=== PATIENT | female | born 1935 | race Caucasian/White ===

== ENCOUNTER 2017-10-01 09:55 | Emergency (ER) | payer MEDICARE, BC ==
[2017-10-01 11:58] VITALS: BP 151/73
--- NOTE | 2017-10-01 11:58 | UC ---
Complaint Female HPI - HPI Summary HPI Summary: Pt presents with vaginal burning and itching. She tells me that she was diagnosed with a UTI about a week ago and finished a course of Macrobid. At that time she developed vaginal burning and itching. Her PCP advised her to try monistat - which she did with no relief. She was then seen by an [employer] at [place] and diagnosed with a yeast infection. She was given a one time dose of Diflucan which did improve her symptoms for one day, but they did not completely resolve. The [employer] told her to be seen again if her symptoms did not resolve, but noone is available at [place] until monday. She is here today with continued burning and itching and thick white discharge. Denies fever, chills, dysuria, or flank pain. - History Of Current Complaint Chief Complaint: UCGU Stated Complaint: YEAST INFECTION Time Seen by Provider: 10/01/17 11:58 Hx Obtained From: Patient Onset/Duration: Gradual Onset Timing: Constant Severity Initially: Moderate Severity Currently: Moderate Pain Intensity: 7 Pain Scale Used: 0-10 Numeric - Allergies/Home Medications Allergies/Adverse Reactions: Allergies Allergy/AdvReac Type Severity Reaction Status Date / Time meperidine Allergy Nausea And Verified 10/01/17 10:21 Vomiting Penicillins Allergy Hives Verified 10/01/17 10:21 Sulfa (Sulfonamide Allergy Hives Verified 10/01/17 10:21 Antibiotics) Home Medications: Home Medications Vitamin B Complex [Super B-50 Complex] 1 each PO 10/01/17 [History] PMH/Surg Hx/FS Hx/Imm Hx Previously Healthy: Yes - Surgical History Surgical History: Yes Surgery Procedure, Year, and Place: Tonsilectomy. Appendectomy. Partial hysterectomy. shoulder. knee meniscus repair - Family History Known Family History: Positive: Unknown - Social History Occupation: Retired Lives: [facility] Alcohol Use: Daily Alcohol Amount: glass of wine Substance Use Type: None Smoking Status (MU): Never Smoked Tobacco Have You Smoked in the Last Year: No Review of Systems Constitutional: Negative Skin: Negative Respiratory: Negative Cardiovascular: Negative Gastrointestinal: Negative Genitourinary: Negative, Vaginal/Penile Burning, Vaginal/Penile Itching Neurological: Negative Psychological: Negative All Other Systems Reviewed And Are Negative: Yes Physical Exam Triage Information Reviewed: Yes Appearance: Well-Appearing, No Pain Distress, Well-Nourished Vital Signs: Initial Vital Signs Temp 98.7 F 10/01/17 10:14 Pulse 95 10/01/17 10:14 Resp 18 10/01/17 10:14 BP 140/68 10/01/17 10:14 Pulse Ox 99 10/01/17 10:14 Vital Signs Reviewed: Yes Neck: Positive: Supple, Nontender, No Lymphadenopathy Respiratory: Positive: Lungs clear, Normal breath sounds, No respiratory distress, No accessory muscle use Cardiovascular: Positive: RRR, No Murmur, Pulses Normal Abdomen Description: Positive: Nontender, No Organomegaly, Soft. Negative: CVA Tenderness (R), CVA Tenderness (L), Distended, Guarding Bowel Sounds: Positive: Present Neurological: Positive: Alert Psychological: Positive: Age Appropriate Behavior Skin: Negative: rashes - Additional Comments Pelvic exam: External genitalia: Mildly TTP. Mildly erythematous. No lesions. Vagina: Rugated, copious white thick clumps. No odor Complaint Female Dx - Course Course Of Treatment: Suspect vaginal yeast - culture taken. Will rx for Diflucan for 5 days and have her f/u with Thor [employer] if no relief. - Differential Dx/Diagnosis Provider Diagnoses: Vaginal yeast Discharge - Discharge Plan Condition: Stable Disposition: HOME Prescriptions: Fluconazole [Diflucan 150 MG (NF)] 150 mg PO DAILY #5 tab Patient Education Materials: Yeast Infection (ED) Referrals: Belinda, [Primary Care Provider] - Additional Instructions: If you develop a fever, shortness of breath, chest pain, new or worsening symptoms - please call your PCP or go to the ED. Your blood pressure was high at todays visit. Please see your primary provider within 4 weeks for recheck and re-evaluation.
--- NOTE | 2017-10-02 18:05 | ED ---
Progress - Progress Note Progress Note: Neg magalie, neg garnerella no change Adolfo 10/02/2017 Course/Dx - Course Course Of Treatment: Suspect vaginal yeast - culture taken. Will rx for Diflucan for 5 days and have her f/u with Thor LEMA if no relief.
== END 2017-10-01 12:25 | disposition home or self-care (01) ==
LOC: UCEAST 09:55
DX: B37.3 Candidiasis of vulva and vagina (principal); Z87.440 Personal history of urinary (tract) infections; Z88.5 Allergy status to narcotic agent; Z88.0 Allergy status to penicillin; Z88.2 Allergy status to sulfonamides
CPT/HCPCS: 87480; 87510; 99212; G0463

== ENCOUNTER 2018-05-13 07:08 | Emergency (ER) | payer MEDICARE, BC ==
--- NOTE | 2018-05-13 07:43 | UC ---
Respiratory Complaint HPI - HPI Summary HPI Summary: 3 DAYS OF PRODUCTIVE COUGH, CHEST CONGESTION AND FATIGUE. FEELS WORSE TODAY. DIZZY THIS MORNING. SLIGHTLY NAUSEATED. HAD SEEN PCP 2 DAYS AGO AND TOLD LIKELY VIRAL AND TO F/U IN SEVERAL DAYS IF NOT BETTER. NO FEVER, ST OR EAR PAIN. - History of Current Complaint Chief Complaint: UCGeneralIllness Stated Complaint: CONGESTED Time Seen by Provider: 05/13/18 07:27 Hx Obtained From: Patient Onset/Duration: Gradual Onset, Lasting Days, Still Present Timing: Constant Severity Initially: Moderate Severity Currently: Moderate Pain Intensity: 0 Pain Scale Used: 0-10 Numeric Character: Cough: Productive Aggravating Factors: Nothing Alleviating Factors: Nothing Associated Signs And Symptoms: Positive: URI, Nasal Congestion. Negative: Dyspnea, Fever, Wheezing - Allergies/Home Medications Allergies/Adverse Reactions: Allergies Allergy/AdvReac Type Severity Reaction Status Date / Time meperidine Allergy Nausea And Verified 05/13/18 07:14 Vomiting Penicillins Allergy Hives Verified 05/13/18 07:14 Sulfa (Sulfonamide Allergy Hives Verified 05/13/18 07:14 Antibiotics) Home Medications: Home Medications Ibuprofen TAB* [Motrin TAB* 600 MG] 600 mg PO Q6H PRN 05/13/18 [History Confirmed 05/13/18] guaiFENesin LIQ* [Robitussin*] 5 mg PO Q4H PRN 05/13/18 [History Confirmed 05/13] PMH/Surg Hx/FS Hx/Imm Hx Previously Healthy: Yes - Surgical History Surgical History: Yes Surgery Procedure, Year, and Place: Tonsilectomy. Appendectomy. Partial hysterectomy. shoulder. knee meniscus repair - Family History Known Family History: Negative: Hypertension - Social History Alcohol Use: Daily Alcohol Amount: 1-2 glass of wine Substance Use Type: None Smoking Status (MU): Never Smoked Tobacco Have You Smoked in the Last Year: No Review of Systems Constitutional: Fatigue ENT: Nasal Discharge Respiratory: Cough Cardiovascular: Negative Gastrointestinal: Nausea All Other Systems Reviewed And Are Negative: Yes Physical Exam Triage Information Reviewed: Yes Appearance: No Pain Distress, Well-Nourished, Ill-Appearing - MILDLY Vital Signs: Initial Vital Signs Temp 98.7 F 05/13/18 07:17 Pulse 74 05/13/18 07:17 Resp 18 10/07/18 07:17 BP 184/94 05/13/18 07:17 Pulse Ox 99 05/13/18 07:17 Vital Signs Reviewed: Yes Eyes: Positive: Conjunctiva Clear ENT: Positive: Hearing grossly normal, Pharynx normal, Nasal congestion, TMs normal Neck: Positive: Supple, Nontender, No Lymphadenopathy Respiratory Exam: Normal Cardiovascular Exam: Normal Abdomen Description: Positive: Soft Musculoskeletal: Positive: No Edema Neurological: Positive: Alert Psychological: Positive: Normal Response To Family, Age Appropriate Behavior Skin: Negative: rashes UC Diagnostic Evaluation - Laboratory O2 Sat by Pulse Oximetry: 99 Respiratory Course/Dx - Differential Dx/Diagnosis Provider Diagnoses: 1. ACUTE BRONCHITIS. 2. ELEVATED BP Discharge - Sign-Out/Discharge Documenting (check all that apply): Patient Departure All imaging exams completed and their final reports reviewed: No Studies - Discharge Plan Condition: Stable Disposition: TRANS HIGHER LVL OF CARE FAC Prescriptions: Azithromycin 500 mg PO DAILY #5 tab Patient Education Materials: Acute Bronchitis (ED) Referrals: Daniel Samson MD [Medical Doctor] - 2 Days Additional Instructions: YOUR SYMPTOMS ARE LIKELY VIRALLY MEDIATED AND SHOULD RESOLVE ON THEIR OWN WITH TIME. WILL SEND ERX FOR ANTIBIOTICS AND IF NOT FEELING BETTER GO AHEAD AND FILL ERX AND FOLLOW-UP WITH PCP. REST, HYDRATE, OTC MEDS NEEDED. OUTSIDE OF YOUR RESPIRATORY ILLNESS YOUR BP IS DANGEROUSLY HIGH. [place] [facility] [facility] [place] FURTHER EVALUATION. YOU HAVE DECLINED TRANSFER TO THE ED BY AMBULANCE. BE ADVISED THAT BY NOT TRAVELING IN A MONITORED SETTING YOU COULD BE RISKING WORSENING OF YOUR CONDITION THAT COULD POSE A THREAT TO YOUR LIFE, HEALTH AND MEDICAL SAFETY. - Billing Disposition and Condition Condition: STABLE Disposition: Trans Higher Lvl of Care Fac
[2018-05-13 07:48] VITALS: BP 180/84
== END 2018-05-13 08:00 | disposition home health service (06) ==
LOC: UCEAST 07:08
DX: J20.9 Acute bronchitis, unspecified (principal); R03.0 Elevated blood-pressure reading, without diagnosis of hypertension; Z88.0 Allergy status to penicillin; Z88.2 Allergy status to sulfonamides; Z88.5 Allergy status to narcotic agent
CPT/HCPCS: 99212; G0463

== ENCOUNTER 2019-06-01 22:45 | Emergency (ER) | payer MEDICARE, OTHER, BC ==
--- OUTSIDE RECORDS SUMMARY | 2019-06-01 23:21 | XMS REPORT | Summary of Care ---
:1935 Author Organization [facility] Address [address] [address] Care Team Providers Name Role Phone Daniel Samson MD Primary Care Provider Anayeli Mathis TARIFF CLERK Unavailable Jonny Rahman MD Unavailable Manoj Santana MD Unavailable Reason for Visit Reason Comments New Patient Right knee pain for years with no known injury. Patient states that the knee is gradually getting worse. Encounter Details Date Type Department Care Team Description 04/05/2019 Office Visit [facility] Kwasi Malaika L, Primary osteoarthritis - [place] RPA-C of right knee (Primary [address]) [address] [place] [address] [place] [address] [phone] Allergies Active Allergy Reactions Severity Noted Date Comments Demerol 07/21/2008 Nausea and vomiting Penicillin G Rash 07/21/2008 Sulfa Antibiotics Rash 07/21/2008 documented as of this encounter (statuses as of 04/05/2019) Medications Medication Sig Dispensed Refills Start Date End Date Status ADVIL PO Take 400-600 mg by 0 Active mouth EVERY SIX HOURS NEEDED. polyvinyl alcohol Place 1 Drop in 0 Active (ARTIFICIAL TEARS) 1.4 both eyes THREE % Ophthalmic Solution TIMES DAILY NEEDED. aspirin (ECOTRIN) 81 Take 81 mg by 0 Active MG Oral Tab EC mouth DAILY. phenazopyridine Take 100 mg by 0 Active (PYRIDIUM) 100 MG Oral mouth THREE TIMES Tab DAILY NEEDED for Pain. CRANBERRY PO Take 2 Tabs by 0 Active mouth DAILY. cyanocobalamin Take 1,000 mcg by 0 Active (VITAMIN B12) 1000 MCG mouth DAILY. Oral Tab fexofenadine (DANK Take 180 mg by 0 Active ALLERGY) 180 MG Oral mouth DAILY. Tab Pvgamyw-Kzepbrsraw-Cir Take 2 Tabs by 0 Active varela D (CITRACAL +D3 mouth TWICE DAILY. PO) acetaminophen Take 1,000 mg by 0 Active (TYLENOL) 500 MG Oral mouth EVERY EIGHT Tab HOURS NEEDED for Pain. Meth-Hyo-M Bl-Na Take by mouth 0 Active Phos-Ph Markos (URIBEL) THREE TIMES DAILY 118 MG Oral Cap NEEDED. ipratropium (ATROVENT) Many Farms 2 Sprays in 0 Active 0.06 % Nasal Solution nose EVERY MORNING. estrogens, conjugated Place 0.25 30 g 11 07/12/2018 Active (PREMARIN) 0.625 MG/GM Applicators into Vaginal Cream the vagina DIRECTED. Twice a week fluticasone (FLONASE) SPRAY 2 SPRAYS IN 16 Each 4 01/01/2019 Active 50 MCG/ACT Nasal NOSE DAILY. Suspension Additional information Patient taking differently: QHS, Reported on 03/15/2019 2:00 PM Clobetasol Propionate 0.05 % Apply by Apply externally route TWICE 0 Active externally Foam DAILY. For two weeks then off 1 week, apply to scalp LUTEIN PO Take by mouth DAILY. 0 Active documented as of this encounter (statuses as of 04/05/2019) Active Problems Problem Noted Date Sacroiliitis 10/29/2018 Bursitis of both hips 05/29/2017 Bursitis of left hip 09/21/2016 Spondylosis of lumbosacral region without myelopathy or radiculopathy 2016 Shingles 12/06/2015 Overview: left eye Left bundle branch block 10/23/2014 HTN (hypertension) 10/23/2014 Osteopenia 05/02/2014 Overview: [facility] Atrophic vaginitis 05/02/2014 Overview: With urethritis, treated with Premarin cream Bone spur of ankle 05/02/2014 Overview: Medial malleolus, left ankle, free floating Eczema 04/14/2013 Overview: Left lower leg Right hip pain 08/24/2009 history of gerd 07/21/2008 recurrent urinary tract infection 07/21/2008 Allergic rhinitis 07/21/2008 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 IBS (irritable bowel syndrome) Hiatal hernia Vaginal atrophy Osteoarthritis of spine with radiculopathy, lumbar region Lumbar herniated disc Lumbosacral disc disease Overview: with left sided radiculopathy causing left thigh numbness DJD (degenerative joint disease) Chronic cystitis Sun-damaged skin documented as of this encounter (statuses as of 04/05/2019) Resolved Problems Problem Noted Date Resolved Date Herniated nucleus pulposus, L2-3 right 08/17/2009 08/24/2009 Lumbar disc herniation with radiculopathy 02/27/2009 08/17/2009 Overview: Replaced inactive diagnosis documented as of this encounter (statuses as of 04/05/2019) Immunizations Name Administration Dates Next Due Depo Medrol (40mg) 08/23/2016 Influenza (IM) Preservative Free 05/20/2015, 05/23/2014, 05/17/2013, 04/26/2012 Influenza Vaccine High Dose 05/10/2018, 05/17/2017, 05/19/2016 PNEUMOCOCCAL POLYSACCHARIDE VACCINE 1998 Pneumococcal Conjugate Vaccine 12/05/2014 ZOSTER (SHINGRIX) VACCINE 01/14/2019 ZOSTER (ZOSTAVAX) VACCINE 08/24/2007 documented as of this encounter Social History Tobacco Use Types Packs/Day Years Used Date Never Smoker Smokeless Tobacco: Never Used Alcohol Use Drinks/Week oz/Week Comments No 0 Standard drinks or equivalent 0.0 Sex Assigned at Date Recorded Not on file Job Start Date Occupation Industry Not on file Not on file Not on file Travel History Travel Start Travel End No recent travel history available. documented as of this encounter Last Filed Vital Signs Vital Sign Reading Time Taken Comments Blood Pressure 132/76 04/05/2019 2:39 PM EDT Pulse 66 04/05/2019 2:39 PM EDT Temperature - - Respiratory Rate - - Oxygen Saturation - - Inhaled Oxygen Concentration - - Weight 58.1 kg (128 lb) 04/05/2019 2:39 PM EDT Height 165.1 cm (5' 5") 04/05/2019 2:39 PM EDT Body Mass Index 21.3 04/05/2019 2:39 PM EDT documented in this encounter Progress Notes Malaika Villalpando, ALYCIA-Ricky - 04/05/2019 2:30 PM EDT Name: Malaika Palacios : 1935 Date of Service: 04/05/2019 Referring Provider: Himanshu Primary Care Provider: Daniel Samson Chief Complaint Patient presents with New Patient Right knee pain for years with no known injury. Patient states that the knee is gradually getting worse. History of Present Illness: Malaika Palacios is a 83-y.o. female who presents for a new visit. The patient presents with right knee pain. Current symptoms include: pain: intensity 6/10. Onset of the symptoms was several months ago. Inciting event: no known event. Aggravating symptoms:going up and down stairs, walking. Patient's overall course: gradually worsening. Patient has had no prior lower extremity problems. Previous visits for this problem: none. Evaluation to date: none. Treatment to date: rest, ice: ineffective. Past Medical History: Diagnosis Date Allergic Rhinitis 07/21/2008 Chronic cystitis DJD (degenerative joint disease) Hiatal hernia history of gerd 07/21/2008 last EGD 03/07/[address] Rollins IBS (irritable bowel syndrome) Lumbar herniated disc Lumbar spondylolysis Lumbosacral disc disease with left sided radiculopathy causing left thigh numbness recurrent urinary tract infection 07/21/2008 Shingles 12/2015 left eye Sun-damaged skin Vaginal atrophy on HRT Past Surgical History: Procedure Laterality Date ARTHROSCOPY KNEE 06/15/00 lateral and medial menisscectomy with chrondroplasty, Dr. Singh [place] TOTAL ABDOM HYSTERECTOMY 1977 Hysterectomy, Total Abdominal Current Outpatient Medications Medication Sig acetaminophen (TYLENOL) 500 MG Oral Tab Take 1,000 mg by mouth EVERY EIGHT HOURS NEEDED for Pain. ADVIL PO Take 400-600 mg by mouth EVERY SIX HOURS NEEDED. aspirin (ECOTRIN) 81 MG Oral Tab EC Take 81 mg by mouth DAILY. Sothwys-Dpsldvnibi-Xmhiocv D (CITRACAL +D3 PO) Take 2 Tabs by mouth TWICE DAILY. Clobetasol Propionate 0.05 % Apply externally Foam by Apply externally route TWICE DAILY. Fortwo weeks then off 1 week, apply to scalp CRANBERRY PO Take 2 Tabs by mouth DAILY. cyanocobalamin (VITAMIN B12) 1000 MCG Oral Tab Take 1,000 mcg by mouth DAILY. estrogens, conjugated (PREMARIN) 0.625 MG/GM Vaginal Cream Place 0.25 Applicators into the vagina DIRECTED. Twice a week fexofenadine (DANK ALLERGY) 180 MG Oral Tab Take 180 mg by mouth DAILY. fluticasone (FLONASE) 50 MCG/ACT Nasal Suspension SPRAY 2 SPRAYS IN NOSE DAILY. (Patient taking differently: EVERY BEDTIME.) ipratropium (ATROVENT) 0.06 % Nasal Solution Many Farms 2 Sprays in nose EVERY MORNING. LUTEIN PO Take by mouth DAILY. Meth-Hyo-M Bl-Na Phos-Ph Markos (URIBEL) 118 MG Oral Cap Take by mouth THREE TIMES DAILY NEEDED. phenazopyridine (PYRIDIUM) 100 MG Oral Tab Take 100 mg by mouth THREE TIMES DAILY NEEDED for Pain. polyvinyl alcohol (ARTIFICIAL TEARS) 1.4 % Ophthalmic Solution Place 1 Drop in both eyes THREE TIMES DAILY NEEDED. No current facility-administered medications for this visit. . Allergies Allergen Reactions Demerol Nausea and vomiting Penicillin G Rash Sulfa Antibiotics Rash Social History Socioeconomic History Marital status: Spouse name: Not on file Number of children: Not on file Years of education: Not on file Highest education level: Not on file Occupational History Not on file Social Needs Financial resource strain: Not on file Food insecurity: Worry: Not on file Inability: Not on file Transportation needs: Medical: Not on file Non-medical: Not on file Tobacco Use Smoking status: Never Smoker Smokeless tobacco: Never Used Substance and Sexual Activity Alcohol use: No Alcohol/week: 0.0 standard drinks Drug use: No Sexual activity: Not on file Lifestyle Physical activity: Days per week: Not on file Minutes per session: Not on file Stress: Not on file Relationships Social connections: Talks on phone: Not on file Gets together: Not on file Attends shinto service: Not on file Active member of club or organization: Not on file Attends meetings of clubs or organizations: Not on file Relationship status: Not on file Intimate partner violence: Fear of current or ex partner: Not on file Emotionally abused: Not on file Physically abused: Not on file Forced sexual activity: Not on file Other Topics Concern Not on file Social History Narrative Not on file History reviewed. No pertinent family history. ROS: Review of systems intake completed by clinical staff. I have reviewed and agree with their documentation. Physical Examination: BP 132/76 | Pulse 66 | Ht 5' 5" (1.651 m) | Wt 128 lb (58.1 kg) | BMI 21.30 kg/m Patient was examined in the supine position. She has a Negative effusion. Patient has extension 0, flexion 120. Patient has not tenderness on palpation of the medial joint line. Patient has tendernesson palpation of the lateral joint line. negative varus stress test. negative valgus stress test. Nv intact to the Right lower extremity. Patient walks without an antalgic gait with respect to the right extremity. Right ankle and hip range of motion are full and pain free. The left knee exam is normal. X-Ray: X-rays of right knee, Ap, lateral skyline and notch views were obtained. minimal changes are noted in the medial compartment;severe changes are noted in the lateral compartment;minimal are notedin the patella-femoral compartment. Impression: 1. Primary osteoarthritis of right knee Plan: The risks and benefits of my recommendations, as well as other treatment options along with their benefits, risks, and failure rates were discussed with the patient today. The patient was advised of the material risks and benefits of a intraarticular depomedrol injection and verbal informed consent was obtained. The skin was prepped with an betadine sponge and the right knee lateral suprapatellar space was injected with 80 mg of Depo-medrol in 2cc of 1% plain lidocaine and 1cc of 0.5% marcaine. She tolerated the injection well with no associated complications. A band aid was applied to the injection site. Possible side effects were discussed as was the use of ice and over the counter Tylenol or ibuprofen for post injection discomfort. she was given the post injection sheet. All questions were answered. Given a pamphlet on Euflexxa Follow up: Schedule follow-up here in 3 week(s). Author: JACKELYN Keys 04/05/2019 15:20 documented in this encounter Plan of Treatment Date Type Specialty Care Team Description 04/30/2019 Office Visit Orthopedics Juancarlos Bello MD [address] [place] [address] [phone] 06/14/2019 Office Visit Internal Medicine Daniel Samson MD [address] [place] [address] [phone] Health Maintenance Due Date Last Done Comments MEDICARE ANNUAL WELLNESS 05/31/2017 05/31/2016 VISIT ZOSTER IMMUNIZATION SERIES 03/11/2019 01/14/2019, 08/24/2007 (3 of 3) INFLUENZA VACCINE (#1) 2019 05/10/2018, 05/17/2017, 05/19/2016, Additional history exists DEPRESSION SCREENING 05/11/2019 05/11/2018 FALL RISK ASSESSMENT 05/11/2019 05/11/2018, 05/11/2018 PNEUMOCOCCAL 65+YRS Completed 12/05/2014, 1998 HPV IMMUNIZATION SERIES Aged Out No longer eligible based on patient's age to complete this topic MENINGOCOCCAL VACCINE IMM Aged Out No longer eligible based on patient's age to complete this topic documented as of this encounter Goals Goal Patient Goal Associated Recent Patient-Stated? Author Type Problems Progress Blood Pressure Blood Pressure 132/76 Roselyn Samson, < 150/90 (04/05/2019 MD Daniel 2:39 PM EDT) Note: This is an individualized treatment (blood pressure) goal for Malaika Palacios: Displayed above (on the left) is your goal for blood pressure control. Your most recent blood pressure is also shown above, on the right. You should try to achieve blood pressures that are lower than your goal listed above (on the left). Take all prescribed medications as directed Self-management Daniel Evangelista MD Note: This is an individualized self-management goal for Malaika Palaciso: Please take all prescribed medications as directed. 1. Do not skip doses. If you cannot afford your medications, talk with your doctor. 2. Use a pill reminder system such as a pill box if needed. Your pharmacist can help you with this. 3. Contact your Pharmacy 5 days before your medication runs out. If you cannot take your medications for any reasons, talk with your doctor. 4. Please bring all of your medication bottles and inhalers (or a list of all your medications/inhalers) with you to every visit. Potential barriers to meeting all of your care plan goals will continue to be addressed on an ongoing basis. documented as of this encounter Results Not on filedocumented in this encounter Visit Diagnoses Diagnosis Primary osteoarthritis of right knee - Primary Primary localized osteoarthrosis, lower leg documented in this encounter Insurance Payer Benefit Plan / Subscriber ID Effective Dates Phone Address Type Group MEDICARE MEDICARE PART A & B xxxxxxxxxxx 1998-Present Medicare UHC EMPIRE UHC-EMPIRE PLAN xxxxxxxxx 2016-Present Forrest Guarantor Name Account Type Relation to Date of Phone Billing Patient Address Malaika Palacios Personal/Family 1935 [address] (Home) [place] [phone] [place], [place] (Work) [id number] documented as of this encounter
--- OUTSIDE RECORDS SUMMARY | 2019-06-01 23:21 | XMS REPORT | Summary of Care ---
:1935 Author Organization [facility] Address [address] [address] Care Team Providers Name Role Phone Daniel Samson Primary Care Provider Anayeli Mathis TOWEL FOLDER Unavailable Jonny Rahman MD Unavailable Manoj Santana MD Unavailable Reason for Visit Reason Comments Follow Up Right knee. Patient notes improvement after Depo 80mg injection on 04/05/2019. Encounter Details Date Type Department Care Team Description 04/30/2019 Office Visit [facility] Juancarlos Bello, Primary osteoarthritis - Simms MD of right knee (Primary [address]) [place] [address] [place] [address] [phone] Allergies Active Allergy Reactions Severity Noted Date Comments Demerol 07/21/2008 Nausea and vomiting Penicillin G Rash 07/21/2008 Sulfa Antibiotics Rash 07/21/2008 documented as of this encounter (statuses as of 05/03/2019) Medications Medication Sig Dispensed Refills Start Date [...] ALLERGY) 180 MG Oral mouth DAILY. Tab Oimgyrr-Atgobkxonn-Wax Take 2 Tabs by 0 Active varela D (CITRACAL +D3 mouth TWICE DAILY. PO) acetaminophen Take 1,000 mg by 0 Active (TYLENOL) 500 MG Oral mouth EVERY EIGHT Tab HOURS NEEDED for Pain. Meth-Hyo-M Bl-Na Take by mouth 0 Active Phos-Ph Markos (URIBEL) THREE TIMES DAILY 118 MG Oral Cap NEEDED. ipratropium (ATROVENT) Thornton 2 Sprays in 0 Active 0.06 % Nasal Solution nose EVERY MORNING. estrogens, conjugated Place 0.25 30 g 11 07/12/2018 Active (PREMARIN) 0.625 MG/GM Applicators into Vaginal Cream the vagina DIRECTED. Twice a week fluticasone (FLONASE) SPRAY 2 SPRAYS IN 16 Each 4 01/01/2019 Active 50 MCG/ACT Nasal NOSE DAILY. Suspension Additional information Patient taking differently: Q, Reported on 03/15/2019 2:00 PM Clobetasol Propionate 0.05 % Apply by Apply externally route TWICE 0 Active externally Foam DAILY. For two weeks then off 1 week, apply to scalp LUTEIN PO Take by mouth DAILY. 0 Active documented as of this encounter (statuses as of 05/03/2019) Active Problems Problem Noted Date Sacroiliitis 10/29/2018 Bursitis of both hips 05/29/2017 Bursitis of left hip 09/21/2016 Spondylosis of lumbosacral region without myelopathy or radiculopathy 2016 Shingles 12/06/2015 Overview: left eye Left bundle branch block 10/23/2014 HTN (hypertension) 10/23/2014 Osteopenia 05/02/2014 Overview: On bone densitometry done at [facility] April 2014 Atrophic vaginitis 05/02/2014 Overview: With [...] as of this encounter (statuses as of 05/03/2019) Resolved Problems Problem Noted Date Resolved Date Herniated nucleus pulposus, L2-3 right 08/17/2009 08/24/2009 Lumbar disc herniation with radiculopathy 02/27/2009 08/17/2009 Overview: Replaced inactive diagnosis documented as of this encounter (statuses as of 05/03/2019) Immunizations Name Administration Dates Next Due Depo [...] Sign Reading Time Taken Comments Blood Pressure 133/85 04/30/2019 1:54 PM EDT Pulse 69 04/30/2019 1:54 PM EDT Temperature - - Respiratory Rate - - Oxygen Saturation - - Inhaled Oxygen Concentration - - Weight 58.1 kg (128 lb) 04/30/2019 1:54 PM EDT Height 165.1 cm (5' 5") 04/30/2019 1:54 PM EDT Body Mass Index 21.3 04/30/2019 1:54 PM EDT documented in this encounter Progress Notes Juancarlos Bello MD - 04/30/2019 1:30 PM EDT Name: Malaika Palacios : 1935 Date of Service: 04/30/2019 Chief Complaint Patient presents with Follow Up Right knee. Patient notes improvement after Depo 80mg injection on 04/05/2019. History of Present Illness: Malaika Palacios is a 83-y.o. female. The above is noted. Patient is in today for follow-up of right knee discomfort. She is doing very well she was last seen in the office on 04/05/2019. Physical Examination: BP 133/85 | Pulse 69 | Ht 5' 5" (1.651 m) | Wt 128 lb (58.1 kg) | BMI 21.30 kg/m On physical examination is a well-developed well-nourished female in minimal discomfort at rest. Range of motion of right knee reveals full extension, flexion is 120 degrees without difficulty. Novarus or valgus instability. Impression: DJD right knee. Plan: Doing well and the plan is for the patient to follow-up on a as needed basis only all the patient's questions and her 's questions were answered to their complete satisfaction All questions were answered. There are no Patient Instructions on file for this visit. Author: Juancarlos Bello MD 04/30/2019 14:02 documented in this encounter Plan of Treatment Date Type Specialty Care Team Description 06/14/2019 Office Visit Internal Medicine Daniel Samson MD [address] [place] [address] [phone] Health Maintenance Due Date Last Done Comments [...] Type Problems Progress Blood Pressure Blood Pressure 133/85 No Chapin, < 150/90 (04/30/2019 MD Daniel 1:54 PM EDT) Note: This is an individualized [...] is an individualized self-management goal for Malaika Palacios: Please take all prescribed medications as directed. [...] PART A & B xxxxxxxxxxx 1998-Present Medicare [facility] xxxxxxxxx 2016-Present [place] Guarantor Name Account Type Relation to Date of Phone Billing Patient Address Malaika Palacios Personal/Family 1935 [address] (Home) [place] [phone] [place], [place] (Work) [id number] documented as of this encounter
--- OUTSIDE RECORDS SUMMARY | 2019-06-01 23:21 | XMS REPORT | Continuity of Care Document ---
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 Onset: 01/01/2016 Vitreous degeneration Gilbert Ulloa M.D. Onset: 02/26/2015 Chronic allergic conjunctivitis Gilbert Ulloa M.D. Onset: 02/26/2014 Acute conjunctivitis Gilbert Ulloa M.D. Onset: 12/05/2013 Lens Replaced By Other Means Gilbert Ulloa M.D. 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 Social History Type Date Description Comments Sex Unknown ETOH Use Currently consumes alcohol Tobacco Use Start: Unknown Patient has never smoked Smoking Status Reviewed: 05/16/19 Patient has never smoked Allergies, Adverse Reactions, Alerts Active Allergies Reaction Severity Comments Date Penicillin 10/24/2013 Sulfa Antibiotics 10/24/2013 Dogs 02/26/2014 Estrace 02/26/2014 Medications Active Medications SIG Qnty Indications Ordering Provider Date Aspirin Adult Low Dose Every Day Unknown 01/27/[address] Del Toro Every Day Unknown 10/19/2014 250mg Capsules Sonya-D 24 Hour Allergy & Every Day Unknown 10/19/2014 Congestion 180-240mg Tablets ER 24HR Advil Unknown Premarin Unknown 0.625mg/GM Cream Vitamin B-12 Unknown Tablets Fluticasone Propionate Unknown 50mcg/Act Suspension Immunizations Description No Information Available Vital Signs Date Vital Result Comment 11/15/2018 2:05pm Intraocular Pressure Right Eye 21 mmHg Intraocular Pressure Left Eye 21 mmHg 11/01/2018 3:57pm Intraocular Pressure Right Eye 20 mmHg Intraocular Pressure Left Eye 20 mmHg Results Description No Information Available Procedures Date Code Description Status 05/17/2019 30835 Oct, Optic Nerve Completed 05/17/2019 06496 Visual Field Exam Extended, Unilateral Or Bilateral Completed 05/17/2019 65564 Eye Exam Est Intermediate Completed Medical Devices Description No Information Available Encounters Description No Information Available Assessments Date Code Description Provider 05/17/2019 H40.013 Open angle with borderline findings, low risk, Eloy Suarez, OD bilateral 05/17/2019 H35.3131 Nonexudative age-related macular degeneration, Eloy Suarez, OD bilateral, ea Plan of Treatment 05/17/2019 - Eloy Suarez, ODH40.013 Open angle with borderline findings, low risk, [id number] Nonexudative age-related macular degeneration, bilateral , eaFollow up:5-6 mos full with mac OCT Functional Status Description No Information Available Mental Status Description No Information Available Referrals Description No Information Available
[2019-06-01] MEDS ORDERED: diPHENhydraMINE IV* 50 MG/ML 1 ml VIAL (BENADRYL) IV ONE (23:25)
[2019-06-01] MEDS ORDERED: NS 0.9% 1000 ML** 1,000 ML IV ONE (23:25)
[2019-06-01] MEDS ORDERED: Metoclopramide IV* 5 MG/ML 2 ML VIAL IV ONE (23:25)
[2019-06-01] MEDS ORDERED: Acetaminophen TAB* 325 MG PO ONE (23:26)
--- NOTE | 2019-06-01 23:34 | ED ---
Headache - HPI Summary HPI Summary: Patient complains of headache has been getting progressively worse over the past 2-3 days. Denies trauma, fever, cough, sore throat, CP, SOB, N/3/D, abdominal pain, change in urine, change in BM. States occasional sinusitis headaches with recurrent sinus infections. No anti-coag. Advil taken at 7 PM tonight. - History Of Current Complaint Chief Complaint: EDHeadache Stated Complaint: HEADACHE PER PT Time Seen by Provider: 06/01/19 23:24 Hx Obtained From: Patient Onset/Duration: Gradual Onset, Started days ago Initially Headache Was: Moderate Currently Pain Is: Moderate Timing: Constant Character: Throbbing Location of Headache: Frontal Aggravating Factor: Bright Lights Allevating Factors: Nothing Associated Signs And Symptoms: Negative - Allergies/Home Medications Allergies/Adverse Reactions: Allergies Allergy/AdvReac Type Severity Reaction Status Date / Time meperidine Allergy Nausea And Verified 06/01/19 23:17 Vomiting Penicillins Allergy Hives Verified 06/01/19 23:17 Sulfa (Sulfonamide Allergy Hives Verified 06/01/19 23:17 Antibiotics) PMH/Surg Hx/FS Hx/Imm Hx Endocrine/Hematology History: Denies: Hx Anticoagulant Therapy Cardiovascular History: Denies: Hx Hypertension History: Denies: Hx Dialysis Musculoskeletal History: Denies: Hx Osteoporosis Sensory History: Denies: Hx Eye Prosthesis Opthamlomology History: Denies: Hx Legally Blind EENT History: Denies: Hx Deafness - Cancer History Hx Chemotherapy: No Hx Radiation Therapy: No - Surgical History Surgery Procedure, Year, and Place: Tonsilectomy. Appendectomy. Partial hysterectomy. shoulder. knee meniscus repair - Immunization History Date of Tetanus Vaccine: utd Date of Influenza Vaccine: fall 2018 Infectious Disease History: Yes Infectious Disease History: Denies: Hx Clostridium Difficile, Hx Hepatitis, Hx Human Immunodeficiency Virus (HIV), Hx of Known/Suspected MRSA, Hx Shingles, Hx Tuberculosis, Hx Known/ Suspected VRE, Hx Known/Suspected VRSA, History Other Infectious Disease, Traveled Outside the [place] in Last 30 Days - Family History Known Family History: Negative: Hypertension - Social History Alcohol Use: Daily Alcohol Amount: 1-2 glass of wine Substance Use Type: Reports: None Smoking Status (MU): Never Smoked Tobacco Have You Smoked in the Last Year: No Review of Systems Constitutional: Negative Eyes: Negative ENT: Negative Cardiovascular: Negative Respiratory: Negative Gastrointestinal: Negative Genitourinary: Negative Musculoskeletal: Negative Skin: Negative Positive: Headache Psychological: Normal All Other Systems Reviewed And Are Negative: Yes Physical Exam Triage Information Reviewed: Yes Vital Signs On Initial Exam: Initial Vitals Temp Pulse Resp BP Pulse Ox 97.2 F 80 20 182/88 99 06/01/19 22:56 06/01/19 22:56 06/01/19 22:56 06/01/19 22:56 06/01/19 22:56 Vital Signs Reviewed: Yes Appearance: Positive: Well-Appearing Skin: Positive: Warm Head/Face: Positive: Normal Head/Face Inspection Eyes: Positive: Normal ENT: Positive: Normal ENT inspection Neck: Positive: Supple Respiratory/Lung Sounds: Positive: Clear to Auscultation Cardiovascular: Positive: Normal Abdomen Description: Positive: Nontender Musculoskeletal: Positive: Normal Neurological: Positive: Normal Psychiatric: Positive: Normal AVPU Assessment: Alert - Castine Coma Scale Best Eye Response: 4 - Spontaneous Best Motor Response: 6 - Obeys Commands Best Verbal Response: 5 - Oriented Coma Scale Total: 15 Procedures - Sedation Patient Received Moderate/Deep Sedation with Procedure: No Diagnostics - Vital Signs Vital Signs Temp Pulse Resp BP Pulse Ox 06/01/19 23:23 81 22 185/94 96 06/01/19 23:18 81 15 195/84 99 06/01/19 23:17 16 06/01/19 22:56 97.2 F 80 20 182/88 99 - Laboratory Lab Statement: Any lab studies that have been ordered have been reviewed, and results considered in the medical decision making process. Headache Course/Dx - Course Course Of Treatment: Patient complains of headache has been getting progressively worse over the past 2-3 days. Denies trauma, fever, cough, sore throat, CP, SOB, N/3/D, abdominal pain, change in urine, change in BM. States occasional sinusitis headaches with recurrent sinus infections. No anti-coag. Advil taken at 7 PM tonight. Vital signs within normal limits. Recent diagnosis of UTI. Urine negative. Symptoms improved with migraine cocktail. CT brain negative. - Diagnoses Provider Diagnoses: Head ache Discharge ED - Sign-Out/Discharge Documenting (check all that apply): Patient Departure - Discharge Plan Condition: Stable Disposition: HOME Patient Education Materials: Acute Headache (ED) Referrals: Daniel Samson MD [Primary Care Provider] - Additional Instructions: Alternate ibuprofen 400 mg with Tylenol 650 mg every 3 hours for up to 2 days as needed for headache pain. Follow-up with primary care. - Billing Disposition and Condition Condition: STABLE Disposition: Home
[2019-06-01 23:42] LABS: Urine Appearance Clear; Urine Bilirubin Negative (Negative); Urine Blood Negative (Negative); Urine Color Colorless; Urine Glucose Negative (Negative); Urine Ketones Negative (Negative); Urine Nitrite Negative (Negative); Urine Protein Negative (Negative); Urine Specific Gravity 1.003 (1.010-1.030); Urine Urobilinogen Negative (Negative)
[2019-06-02] MEDS ORDERED: Ibuprofen TAB* 600 MG PO ONE (00:19)
[2019-06-02 02:09] VITALS: BP 158/84
== END 2019-06-02 02:09 | disposition home or self-care (01) ==
LOC: ED 22:45
DX: R51 Headache (principal); I67.82 Cerebral ischemia; Z88.5 Allergy status to narcotic agent; Z88.0 Allergy status to penicillin; Z88.2 Allergy status to sulfonamides
CPT/HCPCS: 70450; 81003; 96361; 96374; 96375; 99283; A9270-GY; J1200; J2765

== ENCOUNTER 2019-06-04 16:17 | Emergency (ER) | payer MEDICARE, BC ==
--- NOTE | 2019-06-04 17:24 | ED ---
Hypertension - HPI Summary HPI Summary: 84 year old female presents to the ED with a chief complaint of intermittent hypertension starting several weeks ago after having a bladder infection. Patient reports that abdominal pain and headache from the bladder infection still remained even after treatment. She was diagnosed with low dose antibiotics and had a urethral stretching procedure which alleviated the patient 's abdominal pain. Headache still remained. Several ldays ago she presented to ED with fever, headache, and high bp. She was treated with ibuprofen and discharged. The headache remained yesterday, when she saw her PCP. She believed the headache was secondary to caffeine withdrawal, so patient drank 2 cups of coffee yesterday evening. The headache was alleviated but the hypertension was higher than before. She presented to the ED today when BP did not decrease and headache returned. She denies fever. She believes her symptoms are caused by a sinus infection and requests amoxicillin. Patient has a history of sinus infections. She does not take medications for HTN. - History of Current Complaint Chief Complaint: EDHypertension Stated Complaint: HIGH BLOOD PRESSURE PER PT Time Seen by Provider: 06/04/19 16:48 Hx Obtained From: Patient Onset/Duration: Started Weeks Ago Timing: Intermittent Aggravating Factor(s): Nothing Alleviating Factor(s): Nothing Associated Signs & Symptoms: Headaches - Allergies/Home Medications Allergies/Adverse Reactions: Allergies Allergy/AdvReac Type Severity Reaction Status Date / Time meperidine Allergy Nausea And Verified 06/01/19 23:17 Vomiting Penicillins Allergy Hives Verified 06/01/19 23:17 Sulfa (Sulfonamide Allergy Hives Verified 06/01/19 23:17 Antibiotics) PMH/Surg Hx/FS Hx/Imm Hx Endocrine/Hematology History: Denies: Hx Anticoagulant Therapy Cardiovascular History: Denies: Hx Hypertension History: Denies: Hx Dialysis Musculoskeletal History: Denies: Hx Osteoporosis Sensory History: Denies: Hx Eye Prosthesis, Hx Legally Blind, Hx Deafness Opthamlomology History: Denies: Hx Eye Prosthesis, Hx Legally Blind - Cancer History Hx Chemotherapy: No Hx Radiation Therapy: No - Surgical History Surgery Procedure, Year, and Place: Tonsilectomy. Appendectomy. Partial hysterectomy. shoulder. knee meniscus repair - Immunization History Date of Tetanus Vaccine: utd Date of Influenza Vaccine: fall 2018 Infectious Disease History: No Infectious Disease History: Denies: Hx Clostridium Difficile, Hx Hepatitis, Hx Human Immunodeficiency Virus (HIV), Hx of Known/Suspected MRSA, Hx Shingles, Hx Tuberculosis, Hx Known/ Suspected VRE, Hx Known/Suspected VRSA, History Other Infectious Disease, Traveled Outside the [place] in Last 30 Days - Family History Known Family History: Negative: Hypertension - Social History Alcohol Use: Daily Alcohol Amount: 1-2 glass of wine Substance Use Type: Reports: None Smoking Status (MU): Never Smoked Tobacco Have You Smoked in the Last Year: No Review of Systems Negative: Fever Positive: Other - HTN Positive: Headache All Other Systems Reviewed And Are Negative: Yes Physical Exam - Summary Physical Exam Summary: Appearance: Well-appearing, Well-nourished, lying in bed comfortable Skin: Warm, dry, no obvious rash Eyes: sclera anicteric, no conjunctival pallor ENT: mucous membranes moist Neck: deferred Respiratory: No signs of respiratory distress Cardiovascular: Appears well perfused, pulses are nml Abdomen: deferred Musculoskeletal: Moving all 4 extremities without obvious discomfort Neurological: Awake and alert, mentation is normal, speech is fluent and appropriate Psychiatric: affect is normal, does not appear anxious or depressed Triage Information Reviewed: Yes Vital Signs On Initial Exam: Initial Vitals Temp Pulse Resp BP Pulse Ox 96.7 F 82 18 209/88 99 06/04/19 16:20 06/04/19 16:20 06/04/19 16:20 06/04/19 16:20 06/04/19 16:20 Vital Signs Reviewed: Yes Procedures - Sedation Patient Received Moderate/Deep Sedation with Procedure: No Diagnostics - Vital Signs Vital Signs Temp Pulse Resp BP Pulse Ox 06/04/19 16:20 96.7 F 82 18 209/88 99 - Laboratory Lab Statement: Any lab studies that have been ordered have been reviewed, and results considered in the medical decision making process. Hypertension Course/Dx - Course Course Of Treatment: 84 year old female presents to the ED with a chief complaint of hypertension starting several weeks ago after having a bladder infection. Patient reports that abdominal pain and headache from the bladder infection still remained even after treatment. She was diagnosed with low dose antibiotics and had a urethral stretching procedure which alleviated the patient 's abdominal pain. Headache still remained. Several ldays ago she presented to ED with fever, headache, and high bp. She was treated with ibuprofen and discharged. The headache remained yesterday, when she saw her PCP. She believed the headache was secondary to caffeine withdrawal, so patient ank 2 cups of coffee yesterday evening. The headache was alleviated but the hypertension was higher than before. She presented to the ED today when BP did not decrease. She denies fever. She believes her symptoms are caused by a sinus infection and requests amoxicillin. Patient has a history of sinus infections. She does not take medications for her blood pressure. Physical exam was normal. Diagnosis is sinusitis, headache, and elevated blood pressure. I prescribed amoxicillin for the sinusitis, and discharged her home. I told her to follow up with her PCP in 2-3 days. She should return to the ED if symptoms worsen or change. She agreed with this plan. - Diagnoses Provider Diagnoses: Sinusitis, Elevated BP without diagnosis of hypertension, Headache Discharge ED - Discharge Plan Referrals: Daniel Samson MD [Primary Care Provider] - - Attestation Statements Document Initiated by Jade: Yes Documenting Scribe: Carl Kwok Provider For Whom Jade is Documenting (Include Credential): Dr. Lawson Mora Scribe Attestation: I, Carl Kwok, scribed for Dr. Lawson Mora on 06/04/19 at [id number]. Status of Scribe Document: Ready
[2019-06-04 18:00] VITALS: BP 178/82
== END 2019-06-04 17:58 | disposition home or self-care (01) ==
LOC: ED 16:17
DX: J01.90 Acute sinusitis, unspecified (principal); R03.0 Elevated blood-pressure reading, without diagnosis of hypertension; R51 Headache; Z88.0 Allergy status to penicillin; Z88.2 Allergy status to sulfonamides; Z88.8 Allergy status to other drugs, medicaments and biological substances
CPT/HCPCS: 99283

== ENCOUNTER 2021-05-14 08:38 | Observation (INO) ==
[~2021-05-14 08:38] MED LIST: Buffered Lidocaine 1% SYRIN 1 ml INTRADERM ONE; Famotidine IV 10 MG/ML 2 ml VIAL (20 mg) IV ONE; Lactated Ringers 1000 ml BAG 1,000 ML IV SCH
[2021-05-14] MEDS ORDERED: Clindamycin 900 MG/D5W BAG 900 MG/50 ML BAG IVPB ONE (09:04)
[2021-05-14] MEDS ORDERED: Famotidine IV 10 MG/ML 2 ml VIAL (20 mg) ONE (09:04)
[2021-05-14] MEDS ORDERED: Ketamine HCL 50 mg/ml 10 ml VIAL (500 MG) ONE (09:22)
[2021-05-14] MEDS ORDERED: Propofol 10 MG/ML 20 ML BTL ONE ×2 (09:22→11:42)
[2021-05-14] MEDS ORDERED: Dexamethasone IV 4 MG/ML VIAL 1 ml VIAL ONE (09:22)
[2021-05-14] MEDS ORDERED: Ondansetron 4 mg VIAL 2 MG/ML 2 ml VIAL ONE ×2 (09:22→15:18)
[2021-05-14] MEDS ORDERED: ROPIVACAINE 5 MG/ML 30 ML BTL (0.5%) ONE (09:22)
[2021-05-14] MEDS ORDERED: fentaNYL 100 mcg/2 ml 50 MCG/ML VIAL ONE (09:22)
[2021-05-14] MEDS ORDERED: Lidocaine 2% PF 5 ML VIAL ONE (09:22)
[2021-05-14] MEDS ORDERED: Midazolam 5 mg/5 ml VIAL 1 mg/ml 5 ml VIAL (5 mg) ONE (09:22)
[2021-05-14] MEDS ORDERED: Ropivacaine 5 MG/ML 20 ML VIAL 0.5% (100 MG) ONE (10:45)
[2021-05-14] MEDS ORDERED: Bupivacaine 0.5% SDV PF 30ML VIAL ONE (11:23)
[2021-05-14] MEDS ORDERED: Magnesium Hydroxide LIQ 30 ML UDC PO PRN (11:55)
[2021-05-14] MEDS ORDERED: Lactulose 30 ml UDC PO PRN (11:55)
[2021-05-14] MEDS ORDERED: Morphine 2 MG/ML SYRINGE IV PRN (11:55)
[2021-05-14] MEDS ORDERED: Ondansetron 4 mg VIAL 2 MG/ML 2 ml VIAL IV PRN ×2 (11:55→12:25)
[2021-05-14] MEDS ORDERED: diPHENhydraMINE 25 mg TAB PO PRN (11:55)
[2021-05-14] MEDS ORDERED: diPHENhydraMINE IV 50 MG/ML 1 ml VIAL (BENADRYL) IV PRN (11:55)
[2021-05-14] MEDS ORDERED: Ondansetron ODT 4 mg TAB 4 MG TAB PO PRN (11:55)
[2021-05-14] MEDS ORDERED: Lactated Ringers 1000 ml BAG 1,000 ML IV SCH (12:00)
[2021-05-14] MEDS ORDERED: Prochlorperazine 5 mg/ml 2 ml VIAL (10 mg) IV PRN (12:02)
[2021-05-14] MEDS ORDERED: fentaNYL 100 mcg/2 ml 50 MCG/ML VIAL IV PRN (12:25)
[2021-05-14] MEDS ORDERED: Naloxone 0.4 mg VIAL 0.4 mg/ml 1 ml VIAL IV PRN (12:25)
[2021-05-14] MEDS ORDERED: Prochlorperazine 5 mg/ml 2 ml VIAL (10 mg) ONE (15:34)
[2021-05-14] MEDS ORDERED: Sodium Citrate/Citric Acid LIQ 15 ML UDC ONE (15:53)
[2021-05-14] MEDS: Clindamycin 600 MG/D5W BAG 600 MG/50 ML BAG IV SCH (20:06)
[2021-05-14] MEDS: Magnesium Hydroxide LIQ 30 ML UDC PO SCH (21:33)
[2021-05-15] MEDS: Clindamycin 600 MG/D5W BAG 600 MG/50 ML BAG IV SCH (04:08)
[2021-05-15 06:48] LABS: Hematocrit 33 % (35-47); Hemoglobin 11.2 g/dL (12.0-16.0); Mean Platelet Volume 9.9 fL (7.4-10.4); Platelet Count 167 10^3/uL (150-450)
[2021-05-15 06:56] LABS: Calcium 8.9 mg/dL (8.6-10.3); Potassium 3.8 mmol/L (3.5-5.0)
[2021-05-15] MEDS: Magnesium Hydroxide LIQ 30 ML UDC PO SCH (08:31)
[2021-05-15] MEDS ORDERED: Vitamin THERAPEUTIC TAB PO SCH (09:00)
[2021-05-15 11:15] VITALS: BP 129/60
[2021-05-15] MEDS ORDERED: Clindamycin VIAL 600 MG in NS 0.9% 50 ML 50 ML IVPB ONE (16:00)
== END 2021-05-15 15:45 | disposition home or self-care (01) ==
LOC: SSU 08:38 → OR 08:38
PROVIDERS: ADMIT Orthopaedic Surgery Adult Reconstructive Orthopaedic Surgery; ATTEND Orthopaedic Surgery Adult Reconstructive Orthopaedic Surgery